=== PATIENT | male | born 1975 | race Caucasian/White ===

== ENCOUNTER 2017-06-30 13:08 | Emergency (ER) | payer MEDICARE, OTHER ==
[~2017-06-30] VITALS: Ht 175.3 cm; Wt 90.4 kg
[2017-06-30] MEDS ORDERED: ONDANSETRON ODT 4 MG ONE ×2 (14:09→14:11)
[2017-06-30] MEDS ORDERED: FAMOTIDINE 20 MG/2 ML ONE (14:16)
[2017-06-30] MEDS ORDERED: SODIUM CHLORIDE FLUSH 10ML SYR IVF ONE (14:30)
[2017-06-30] MEDS ORDERED: HYDROcodone/APAP 5/325 TABLET PO ONE (14:30)
[2017-06-30] MEDS ORDERED: FAMOTIDINE 20 MG/2 ML IVP ONE (14:30)
[2017-06-30] MEDS ORDERED: ONDANSETRON ODT 4 MG PO ONE (14:30)
[2017-06-30 14:35] LABS: HEMATOCRIT 44.8 % (39.2-51.8); HEMOGLOBIN 15.4 g/dL (13.7-18.0); WHITE BLOOD COUNT 7.1 x10^3/uL (3.4-10)
[2017-06-30 14:46] LABS: BLOOD UREA NITROGEN 15 mg/dL (7-18)
[2017-06-30] MEDS ORDERED: OMNIPAQUE 350 MG/ML, 100ML BOTTLE ONE (15:25)
[2017-06-30] MEDS ORDERED: KETOROLAC 30 MG/1 ML IVPush ONE (16:00)
[2017-06-30] MEDS ORDERED: KETOROLAC 30 MG/1 ML ONE (16:14)
[2017-06-30 16:56] VITALS: BP 128/74
== END 2017-06-30 16:59 | disposition home or self-care (01) ==
LOC: ED 14:47
DX: K43.9 Ventral hernia without obstruction or gangrene (principal); R10.13 Epigastric pain
CPT/HCPCS: 36415; 74177; 80048; 82040; 85025; 96374; 96375; 99285; J1885; Q0162; Q9967; S0028

== ENCOUNTER 2017-07-24 06:07 | Day surgery (SDC) | payer MEDICARE, OTHER ==
[~2017-07-24] VITALS: Ht 175.3 cm; Wt 90.8 kg
[2017-07-24 07:04] VITALS: BP 136/90
[2017-07-24] MEDS ORDERED: NAPR500T PO (07:08)
[2017-07-24] MEDS ORDERED: HYDR-3240 PO (07:08)
[2017-07-24] MEDS ORDERED: TIZA2TAB PO (07:08)
[2017-07-24] MEDS ORDERED: ALPR1TAB2 PO (07:08)
[2017-07-24] MEDS ORDERED: LACTATED RINGERS 1,000 ML IV SCH (07:09)
[2017-07-24] MEDS ORDERED: LIDOCAINE 1%, 2ML ONE (07:11)
[2017-07-24] MEDS ORDERED: BUPIVACAINE/PF 0.5% ONE (07:29)
[2017-07-24] MEDS ORDERED: EPINEPHRINE 1 MG/ML, 1ML ONE (07:29)
[2017-07-24] MEDS ORDERED: LIDOCAINE 1%, 2ML SQ PRN (07:30)
[2017-07-24] MEDS ORDERED: MIDAZOLAM 1 MG/ML, 2ML ONE (07:46)
[2017-07-24] MEDS ORDERED: FENTANYL PF 100 MCG/2ML ONE ×2 (07:46)
[2017-07-24] MEDS ORDERED: PROPOFOL 10 MG/ML, 20ML ONE (07:48)
[2017-07-24] MEDS ORDERED: ROCURONIUM 10 MG/ML,10ML ONE (07:48)
[2017-07-24] MEDS ORDERED: LIDOCAINE-MPF 2% ,5ML ONE (07:48)
[2017-07-24] MEDS ORDERED: PHENYLEPHRINE 10 MG/ML ONE (07:49)
[2017-07-24] MEDS ORDERED: SODIUM CHLORIDE 0.9% PF 10ML ONE ×2 (07:50)
[2017-07-24] MEDS ORDERED: CEFAZOLIN 1,000 MG ONE ×2 (07:50)
[2017-07-24] MEDS ORDERED: SCOPOLAMINE PATCH, 1.5MG PATCH.TD72 TD ONE ×2 (07:52→07:58)
[2017-07-24] MEDS ORDERED: KETOROLAC 30 MG/1 ML ONE (07:58)
[2017-07-24] MEDS ORDERED: ONDANSETRON 2MG/ML, 2ML ONE (07:58)
[2017-07-24] MEDS ORDERED: DEXAMETHASONE 4 MG/ML, 1ML ONE ×2 (08:08)
[2017-07-24] MEDS ORDERED: BUPIVACAINE/PF-EPI 0.5% 1:200K IM ONE (08:20)
[2017-07-24] MEDS: OXYcodone 5 MG/5 ML ORAL.SOL UDC PO PRN ×2 (08:26→08:46)
[2017-07-24] MEDS ORDERED: NEOSTIGMINE 1 MG/ML, 10ML ONE (08:28)
[2017-07-24] MEDS ORDERED: GLYCOPYRROLATE 0.4 MG/2 ML, 2ML ONE (08:28)
[2017-07-24] MEDS ORDERED: OXYcodone 5 MG/5 ML ORAL.SOL UDC ONE (08:46)
[2017-07-24] MEDS ORDERED: HYDROmorphone 2 MG/ML, 1ML ONE (08:46)
[2017-07-24] MEDS ORDERED: ACETAMINOPHEN 650 MG/20.3 ML UDC ONE (08:46)
[2017-07-24] MEDS ORDERED: HYDROmorphone 1 MG/ML, 1ML IV PRN (09:00)
[2017-07-24] MEDS ORDERED: LABETALOL 5MG/ML, 20ML IV PRN (09:00)
[2017-07-24] MEDS ORDERED: PROMETHAZINE 25 MG/ML, 1ML IV PRN (09:00)
[2017-07-24] MEDS ORDERED: ONDANSETRON 2MG/ML, 2ML IVPush PRN (09:00)
[2017-07-24] MEDS ORDERED: ACETAMINOPHEN 325 MG TABLET PO PRN (09:00)
[2017-07-24] MEDS ORDERED: hydrALAzine 20 MG/ML, 1ML IV PRN (09:00)
[2017-07-24] MEDS ORDERED: MEPERIDINE/PF 25MG/0.5ML IVPush PRN (09:00)
[2017-07-24] MEDS ORDERED: FENTANYL PF 100 MCG/2ML IV PRN (09:00)
[2017-07-24] MEDS ORDERED: OXYcodone/APAP 5/325MG TABLET ONE (12:21)
[2017-07-24] MEDS ORDERED: OXYcodone/APAP 5/325MG TABLET PO PRN (12:30)
== END 2017-07-24 12:35 ==
LOC: OUT 06:07
PROVIDERS: ATTEND Surgery
DX: K43.6 Other and unspecified ventral hernia with obstruction, without gangrene (principal); Z87.891 Personal history of nicotine dependence; Z72.89 Other problems related to lifestyle
CPT/HCPCS: 49561; 49568; C1781; J0171; J0690; J1100; J1170; J1885; J2250; J2370; J2405; J2704; J2710; J3010; J3490; J7120

== ENCOUNTER 2017-08-11 23:38 | Emergency (ER) | payer MEDICAID, OTHER ==
[~2017-08-11] VITALS: Ht 175.3 cm; Wt 89.6 kg
[~2017-08-11 23:38] MED LIST: ALPR1TAB2 PO; HYDR-3240 PO; NAPR-856 PO; TIZA2TAB PO
[2017-08-12] MEDS ORDERED: HYDROmorphone 2 MG/ML, 1ML ONE (01:22)
[2017-08-12] MEDS ORDERED: ONDANSETRON 2MG/ML, 2ML ONE (01:22)
[2017-08-12] MEDS: HYDROmorphone 1 MG/ML, 1ML IVPush PRN ×2 (01:29→02:57)
[2017-08-12] MEDS ORDERED: SODIUM CHLORIDE 0.9% 1,000ML IVBOLUS ONE ×2 (01:30→03:00)
[2017-08-12] MEDS ORDERED: ONDANSETRON 2MG/ML, 2ML IVPush ONE (01:30)
[2017-08-12] MEDS ORDERED: SODIUM CHLORIDE FLUSH 10ML SYR IVF ONE (01:30)
[2017-08-12 01:48] LABS: BASOPHILS # (AUTO) 0.05 x10^3/uL (0-0.1); BASOPHILS % (AUTO) 1 % (0-1); EOSINOPHILS % (AUTO) 0 % (1-7); LYMPHOCYTES # (AUTO) 1.38 x10^3/uL (1-3.4); LYMPHOCYTES % (AUTO) 21 % (22-44); MD NO; MEAN CORPUSCULAR HEMOGLOBIN 31.3 pg (27.5-34.5); MEAN CORPUSCULAR HGB CONC 34.6 g/dL (33.2-36.2); MEAN CORPUSCULAR VOLUME 90.6 fL (81-97); MEAN PLATELET VOLUME 9.4 fL (7.4-10.4); MONOCYTES # (AUTO) 0.83 x10^3/uL (0.2-0.8); MONOCYTES % (AUTO) 12 % (2-9); NEUTROPHILS # (AUTO) 4.41 x10^3/uL (1.8-6.8); NEUTROPHILS % (AUTO) 66 % (42-75); PLATELET COUNT 248 x10^3/uL (130-400); RED BLOOD COUNT 4.83 x10^6/uL (4.38-5.82); RED CELL DISTRIBUTION WIDTH 12.3 % (9.4-14.8)
[2017-08-12 02:00] LABS: ALANINE AMINOTRANSFERASE 35 U/L (12-78); ALBUMIN 4.1 g/dL (3.4-5.0); ANION GAP 10 mmol/L (5-15); CALCIUM 9.7 mg/dL (8.5-10.1); CHLORIDE 108 mmol/L (98-107); CREATININE 1.32 mg/dL (0.7-1.3)
[2017-08-12] MEDS ORDERED: OMNIPAQUE 350 MG/ML, 100ML BOTTLE ONE (02:00)
[2017-08-12 02:02] LABS: ALKALINE PHOSPHATASE 62 U/L (45-117); BILIRUBIN,TOTAL 0.5 mg/dL (0.2-1.0); TOTAL PROTEIN 7.8 g/dL (6.4-8.2)
[2017-08-12 02:59] VITALS: BP 135/78
== END 2017-08-12 03:59 | disposition home or self-care (01) ==
LOC: ED 08-12 01:21
DX: K52.9 Noninfective gastroenteritis and colitis, unspecified (principal)
CPT/HCPCS: 36415; 74177; 80053; 83690; 85025; 96361; 96374; 96375; 96376; 99285; J1170; J2405; J7030; Q9967